=== PATIENT | female | born 1985 | race Caucasian/White ===

== ENCOUNTER 2018-02-15 23:45 | Emergency (ER) | payer MEDICARE, MEDICAID | END 2018-02-16 00:15 | disposition left against medical advice (07) | LOC: MADERS 23:45 | DX: M79.661 Pain in right lower leg (principal); E11.9 Type 2 diabetes mellitus without complications; F31.9 Bipolar disorder, unspecified; F17.210 Nicotine dependence, cigarettes, uncomplicated; Z85.820 Personal history of malignant melanoma of skin; Z79.84 Long term (current) use of oral hypoglycemic drugs | CPT/HCPCS: 99283 ==